=== PATIENT | female | born 1945 | race African-American/Black ===

== ENCOUNTER 2018-06-17 06:35 | Day surgery (SDC) | payer MEDICARE, MEDICAID ==
--- NOTE | 2018-06-05 11:23 | HP ---
HISTORY OF PRESENT ILLNESS: A 73-year-old, black female from [facility], assisted resident, diagnosis of Alzheimer's, has a 3.5 cm right axillary mass. Breast exam was unremarkable. Patient's daughter, Cathy Zapata, [place], [place], . Discussed with her and plan is excisi on of the right axillary mass and IV sedation, local anesthesia as an outpatient. Plan is a mode of excision in the hospital outpatient due to her dementia. Risks and benefits discussed. TOBACCO: None. ALLERGIES: None. MEDICATIONS: Tylenol p.r.n., aspirin enteric coated 81 mg a day, DuoNebs p.r.n., lactulose daily, La six 10 mg daily, MiraLax daily, potassium chloride ER daily, simvastatin 20 mg at bedtime, latanopros t eye drops 1 drop both eyes at bedtime for glaucoma, Zofran p.r.n. PAST MEDICAL HISTORY: DNR, , nonambulatory. PRIMARY CARE PHYSICIAN: Dr. Vinson. DIAGNOSIS: Alzheimer's, dementia, glaucoma, hyperlipidemia, hypertension, poor balance, fall tendenc y. RESIDENCE: [facility]. REVIEW OF SYSTEMS: Not possible. FAMILY HISTORY: Not possible. PHYSICAL EXAMINATION: VITAL SIGNS: Blood pressure 135/66, 74 heart rate, 98.4 degrees. HEAD, EARS, EYES, NOSE AND THROAT: Unremarkable. LUNGS: Clear to auscultation. CARDIAC: Regular rate and rhythm without murmur or gallop. ABDOMEN: Soft, nontender. EXTREMITIES: Unremarkable. Right axillary mass approximately 3.5 cm, smooth, mobile. BREASTS: Without palpable masses. Left axilla masses. ASSESSMENT AND PLAN: Right axillary mass and admitted the patient DNR. Plan, excision, IV sedation, local outpatient under minimal anesthesia. Risks and benefits discussed with the sister.
[2018-06-05 11:26] VITALS: BMI 34.4
[2018-06-17] MEDS ORDERED: Lidocaine 2% PF Inj 2 ML VIAL ONE ×2 (07:06→07:07)
[2018-06-17] MEDS ORDERED: Bacitracin Zinc Ointment 30 gm TUBE ONE (07:06)
[2018-06-17] MEDS ORDERED: Bupivacaine HCl 0.5%/Epinephrine 1:200,000/PF 30 ml Vial ONE (07:06)
[2018-06-17] MEDS ORDERED: CEFAZOLIN/Water 2 GM/20 ML SYRINGE ONE (07:07)
[2018-06-17] MEDS ORDERED: Fentanyl 100 MCG/2 ML VIAL ONE (07:09)
[2018-06-17 07:43] LABS: #Basophils 0.1 thou/uL (0.0-0.2); #Eosinphils 0.1 thou/uL (0.0-0.7); #Lymphocytes 2.4 thou/uL (1.20-3.40); #Monocytes 0.4 thou/uL (0.11-0.59); #Neutrophils 2.9 thou/uL (1.40-6.50); %Basophils 1.4 % (0.0-1.0); %Lymphocytes 40.8 % (21.0-51.0); %Monocytes 7.5 % (0.0-10.0); %Neutrophils 48.4 % (42.0-75.0); Mean Corpuscular HGB CONC 31.1 g/dL (32.0-36.0); Mean Corpuscular Hemoglobin 28.1 pg (27.0-31.0); Mean Corpuscular Volume 90.2 fL (78.0-98.0); Mean Platelet Volume 8.8 fL (7.4-10.4); Platelet Count 249 thou/uL (130-400); RBC Distribution Width 13.6 % (11.5-14.5); Red Blood Cell (RBC) Count 5.33 mill/uL (4.20-5.40); White Blood Cell (WBC) Count 5.9 thou/uL (4.8-10.8)
--- NOTE | 2018-06-17 08:49 | OP ---
DATE OF PROCEDURE: 06/17/2018 PREOPERATIVE DIAGNOSIS: Right axillary 4 cm cyst. POSTOPERATIVE DIAGNOSIS: Right axillary 4 cm cyst. PROCEDURE: Excision of right axillary cyst. SURGEON: Dr. Flaco Shi ANESTHESIA: TIVA, local 0.5% Marcaine with epinephrine 30 mL to his Xylocaine, 10 mL. PROCEDURE: The patient was taken to the operating room where under intravenous sedation, right axill a clipped of hair, prepared with ChloraPrep, draped in routine fashion. Local anesthetic infiltrated into skin and subcutaneous tissue. Elliptical incision made to excise ellipse of skin overlying the large cyst, dissecting the cyst from the subcutaneous tissue, obtaining hemostasis with the cautery. Subcutaneous tissues approximated with 3-0 Monocryl, skin with subdermal 4-0 Monocryl and DermaGlue applied. A 4 cm incision was used. Specimen submitted to pathology.
[2018-06-17] MEDS ORDERED: PROPOFOL 200 MG/20 ML VIAL ONE (11:04)
--- NOTE | 2018-06-21 20:24 | EKG ---
Test Reason : PREOP Blood Pressure : / mmHG Vent. Rate : 066 BPM Atrial Rate : 066 BPM P-R Int : 136 ms QRS Dur : 078 ms QT Int : 398 ms P-R-T Axes : 068 -11 060 degrees QTc Int : 417 ms Normal sinus rhythm Normal ECG When compared with ECG of 14-MAY-2013 19:14, Abberant conduction is no longer Present TN interval has increased Vent. rate has decreased BY [address] no longer depressed in Lateral leads Confirmed by Manasa SCHNEIDER ([id number]) on 06/21/2018 8:24:19 PM Referred By: ELINA Confirmed By:Manasa SCHNEIDER
--- NOTE | 2018-06-22 08:19 | PQF ---
[facility] POST DISCHARGE CLINICAL DOCUMENTATION IMPROVEMENT CLARIFICATION FORM l Todays Date: 06/22/18 l Patients Name BELINDA HOLLEY l l Admit Date 06/17/18 l Disch Date 06/17/18 Reel Winder Name Stu Reyes Email: [email or web address] Cell: [phone] Present Clinical Indicators - Signs / Symptoms Results and Location in Medical Record [ ] Documentation of: [ ] [ ] Documentation of: [ ] [ ] Documentation of: [ ] [ ] Documentation of: [ ] [ ] Risks [ ] [ ] [ ] Treatment [ ] EPIDERMAL INCLUSION CYST R AXILLA QUERY FOR SIZE OF EXCISED LESION MARGINS [ ] [ ] To be completed by Physician: DR. MARILYN ANTOINE The documentation in this patients record requires clarification to ensure coding compliance and accuracy. Check the appropriate box and include in your discharge summary. [ ] [ ] [ ] [ ] Please check this box if this does not apply to this patient [ ] Unable to determine [ ] Other diagnosis: Review the following information and exercise your independent professional judgment in responding to the clarification. Based upon the clinical findings, risk factors, and treatment, please clarify if you are treating one of the above probable or suspected diagnoses. Physician Signature: Date Time TERESAD
--- NOTE | 2018-06-29 12:00 | PQF ---
POST DISCHARGE CLINICAL DOCUMENTATION IMPROVEMENT CLARIFICATION FORM l Todays Date: 06/29/2018 l Patients Name Antonia Cabrera l l Admit Date 06/17/18 l Disch Date 06/17/18 Oracle Database Analyst Contact Name: Email: Cell: Present Clinical Indicators - Signs / Symptoms Results and Location in Medical Record [ ] Documentation of: [ ] [ ] [ ] Risks [ ] [ ] [ ] Treatment [ ] Epidermal inclusion cyst, R axilla Please specify the excised margins of the lesion. [ ] [ ] Dr. Flaco Shi The documentation in this patients record requires clarification to ensure coding compliance and accuracy. Check the appropriate box and include in your discharge summary/addendum. [ ] [ ] [ ] Please check this box if this does not apply to this patient [ ] Unable to determine [ ] Other diagnosis/procedure: Review the following information and exercise your independent professional judgment in responding to the clarification. Based upon the clinical findings, risk factors, and treatment, please clarify if you are treating one of the above probable or suspected diagnoses. Physician Signature: Date Time MTDD
== END 2018-06-17 09:50 | disposition home or self-care (01) ==
LOC: SDC 06:35
PROVIDERS: ATTEND Specialist
PROC: 0XQ4XZZ Repair Right Axilla, External Approach (ICD-10-PCS; principal; 2018-06-17)
PROC: 0JBD0ZZ Excision of Right Upper Arm Subcutaneous Tissue and Fascia, Open Approach (ICD-10-PCS; 2018-06-17)
DX: L72.0 Epidermal cyst (principal); G30.9 Alzheimer's disease, unspecified; F02.80 Dementia in other diseases classified elsewhere, unspecified severity, without behavioral disturbance, psychotic disturbance, mood disturbance, and anxiety; E78.5 Hyperlipidemia, unspecified; I10 Essential (primary) hypertension; I25.2 Old myocardial infarction; M19.90 Unspecified osteoarthritis, unspecified site; Z91.81 History of falling; Z79.82 Long term (current) use of aspirin; Z79.899 Other long term (current) drug therapy; Z66 Do not resuscitate
CPT/HCPCS: 36415; 85025; 88304; 93005; 93010; J0670; J2704; J3010

== ENCOUNTER 2019-08-23 19:27 | Inpatient (IN) | payer MEDICARE, MEDICAID ==
[2019-08-23] MEDS ORDERED: cefTRIAXone\\ROCEPHIN 2 GM VIAL ONE (19:47)
[2019-08-23 19:57] LABS: #Basophils 0.1 thou/uL (0.0-0.2); #Eosinphils 0.1 thou/uL (0.0-0.7); #Lymphocytes 3.3 thou/uL (1.20-3.40); #Monocytes 0.9 thou/uL (0.11-0.59); #Neutrophils 4.6 thou/uL (1.40-6.50); %Basophils 0.6 % (0.0-1.0); %Eosinophils 0.7 % (0.0-10.0); %Lymphocytes 36.9 % (21.0-51.0); %Neutrophils 51.8 % (42.0-75.0); Mean Corpuscular HGB CONC 31.5 g/dL (32.0-36.0); Mean Corpuscular Hemoglobin 28.3 pg (27.0-31.0); Mean Corpuscular Volume 89.8 fL (78.0-98.0); Mean Platelet Volume 7.7 fL (7.4-10.4); Platelet Count 187 thou/uL (130-400); RBC Distribution Width 13.5 % (11.5-14.5); Red Blood Cell (RBC) Count 4.94 mill/uL (4.20-5.40); White Blood Cell (WBC) Count 8.8 thou/uL (4.8-10.8)
--- NOTE | 2019-08-23 19:57 | RAD ---
Portable frontal chest radiograph: 08/23/2019 COMPARISON: 12/07/2015 HISTORY: Cough FINDINGS: Shallow inspiration limits detailed assessment. Mild linear density in the medial left base suggest volume loss. No pneumothorax or pleural fluid. No focal consolidation or alveolar edema. IMPRESSION: Shallow inspiration with no focal consolidation or alveolar edema.
[2019-08-23 20:20] LABS: ALT (SGPT) 20 U/L (8-55); AST (SGOT) 22 U/L (5-34); Albumin 3.3 g/dL (3.4-4.8); Alkaline Phosphatase 87 U/L (40-110); Anion Gap 11 mmol/L (10-20); BUN (Urea Nitrogen) 11 mg/dL (9.8-20.1); Bilirubin, Total 0.6 mg/dL (0.2-1.2); Calc. Creatinine Clearance 0 mL/min (70-130); Calcium 9.4 mg/dL (7.8-10.44); Carbon Dioxide 30 mmol/L (23-31); Chloride 101 mmol/L (98-107); Estimated GFR-MDRD Greater than 90; Globulin 3.4 g/dL (2.4-3.5); Glucose 101 mg/dL (83-110); Potassium 4.1 mmol/L (3.5-5.1); Protein, Total 6.7 g/dL (6.0-8.3); Sodium 138 mmol/L (136-145)
[2019-08-23 20:43] LABS: Bacteria/HPF 4+ HPF (None Seen); Bilirubin Negative (Negative); Blood, Urine Trace (Negative); Clarity Turbid (Clear); Glucose, Urine (Dipstick) Normal (Negative); Leukocyte 500 Leu/uL (Negative); Nitrite Negative (Negative); Protein, Urine (Dipstick) Negative (Neg-Trace); Squamous Epithelial 0-3 HPF (0-3); WBC/HPF Greater than 50 HPF (0-3)
[2019-08-23 20:55] LABS: Transitional Epithelial 0-3 HPF (None Seen)
[2019-08-23] MEDS ORDERED: Ondansetron ODT 4 MG TAB PO PRN ×2 (22:20→22:24)
--- NOTE | 2019-08-23 22:38 | PDOC.HHP ---
Hospitalist HPI - History of Present Illness SOB History of Present Illness: 74 YO F [facility] resident, with a PMH of HTN, tob abuse, bedbound state who was brought into the ER on account of SOB. Pt is unable to provide any hx. Hx is therefore obtained from speaking with ER Dr and pt's sister. Pt's SOB started today and got worse, so the [facility] sent her to the ER. There is no hx of fever, chills, CP or cough. Pts sister says that although pt does not have a hx of CHF, She has been retaining a lot of fluid recently and has gained a lot of weight. Upon presentation to the Er, pt was noted to have hypoxia and was placed on a BIPAP. CXR was not very revealing and UA noted a UTI. Pt was given abx and steroids and has been admitted for further w/u. Hospitalist ROS - Review of Systems Constitutional: denies: fever, chills, sweats, weakness, malaise, other Eyes: denies: pain, vision change, conjunctivae inflammation, eyelid inflammation, redness, other ENT: denies: ear pain, ear discharge, nose pain, nose discharge, nose congestion , mouth pain, mouth swelling, throat pain, throat swelling, other Respiratory: reports: SOB with excertion. denies: cough, dry, shortness of breath, hemoptysis, pleuritic pain, sputum, wheezing, other Cardiovascular: denies: chest pain, palpitations, orthopnea, paroxysmal noc. dyspnea, edema, light headedness, other Gastrointestinal: denies: nausea, vomiting, abdominal pain, diarrhea, constipation, melena, hematochezia, other Genitourinary: denies: dysuria, frequency, incontinence, hematuria, retention, other Musculoskeletal: denies: neck pain, shoulder pain, arm pain, back pain, hand pain, leg pain, foot pain, other Skin: denies: rash, lesions, demond, bruising, other Neurological: denies: weakness, numbness, incoordination, change in speech, confusion, seizures, other Hospitalist History - Past Medical History Cardiac: reports: HTN Other Medical History: Bed bound state - Family History Family History: reports: cancer, diabetes mellitus, hypertension - Social History Smoking Status: Former smoker Alcohol: reports: None Drugs: reports: none Living Situation: Senior Living Activity level: wheelchair bound - Exam General Appearance: ill appearing General - other findings: BIPAP on face Eye: PERRL, anicteric sclera ENT: normocephalic atraumatic, no oropharyngeal lesions, moist mucosa Neck: supple, symmetric, no JVD, no thyromegaly, no lymphadenopathy, no carotid bruit Heart: RRR, no murmur, no gallops, no rubs, normal peripheral pulses Respiratory: rales, rhonchi, tachypneic. negative: CTAB, no wheezes, no rales, no ronchi, normal chest expansion, no tachypnea, normal percussion, wheezes Gastrointestinal: soft, non-tender, non-distended, normal bowel sounds, no palpable masses, no hepatomegaly, no splenomegaly, no bruit Extremities: 1+ LE edema. negative: no cyanosis, no clubbing, no edema, 2+ LE edema, clubbing Neurological: cranial nerve grossly intact Neurological - other findings: decreased strength in both upper and lower ext Musculoskeletal: generalized weakness, diffuse muscle atrophy Psychiatric: normal affect, normal behavior, A&O x 3 Hospitalist Results - Labs Result Diagrams: 08/23/19 19:47 08/23/19 19:47 Lab results: WBC 8.8 thou/uL (4.8-10.8) 08/23/19 19:47 Hgb 14.0 g/dL (12.0-16.0) 08/23/19 19:47 Hct 44.4 % (36.0-47.0) 08/23/19 19:47 MCV 89.8 fL (78.0-98.0) 08/23/19 19:47 Plt Count 187 thou/uL (130-400) 08/23/19 19:47 Neutrophils % 51.8 % (42.0-75.0) 08/23/19 19:47 Sodium 138 mmol/L (136-145) 08/23/19 19:47 Potassium 4.1 mmol/L (3.5-5.1) 08/23/19 19:47 Chloride 101 mmol/L (98-107) 08/23/19 19:47 Carbon Dioxide 30 mmol/L (23-31) 08/23/19 19:47 BUN 11 mg/dL (9.8-20.1) 08/23/19 19:47 Creatinine 0.55 mg/dL (0.6-1.1) L 08/23/19 19:47 Glucose 101 mg/dL (83-110) 08/23/19 19:47 Lactic Acid 1.2 mmol/L (0.5-2.2) 08/23/19 19:47 Calcium 9.4 mg/dL (7.8-10.44) 08/23/19 19:47 Total Bilirubin 0.6 mg/dL (0.2-1.2) 08/23/19 19:47 AST 22 U/L (5-34) 08/23/19 19:47 ALT 20 U/L (8-55) 08/23/19 19:47 Alkaline Phosphatase 87 U/L (40-110) 08/23/19 19:47 Troponin I 0.018 ng/mL (< 0.028) 08/23/19 19:55 B-Natriuretic Peptide 77.3 pg/mL (0-100) 08/23/19 19:47 Serum Total Protein 6.7 g/dL (6.0-8.3) 08/23/19 19:47 Albumin 3.3 g/dL (3.4-4.8) L 08/23/19 19:47 Urine Ketones Negative mg/dL (Negative) 08/23/19 20:13 Urine Blood Trace (Negative) A 08/23/19 20:13 Urine Nitrite Negative (Negative) 08/23/19 20:13 Ur Leukocyte Esterase 500 Erlinda/uL (Negative) A 08/23/19 20:13 Urine RBC 7-10 HPF (0-3) A 08/23/19 20:13 Urine WBC Greater than 50 HPF (0-3) A 08/23/19 20:13 Ur Squamous Epith Cells 0-3 HPF (0-3) 08/23/19 20:13 Urine Bacteria 4+ HPF (None Seen) A 08/23/19 20:13 Hospitalist H&P A/P - Problem (1) Respiratory failure Code(s): J96.90 - RESPIRATORY FAILURE, UNSP, UNSP W HYPOXIA OR HYPERCAPNIA Status: Acute Qualifiers: Chronicity: acute Respiratory failure complication: hypoxia Qualified Code(s): J96.01 - Acute respiratory failure with hypoxia Assessment and Plan: Etiology is unclear. Will get BNP, Echo and CT chest to eval for Pulm edema vs PNA. Cont on BIPAP for tonight. Will get blood gas in the morning. Cont steroids , lasix, nebs and abx. Monitor for symp improvement. (2) UTI (urinary tract infection) Status: Acute Qualifiers: Urinary tract infection type: acute cystitis Hematuria presence: without hematuria Qualified Code(s): N30.00 - Acute cystitis without hematuria Assessment and Plan: Cont current abx. F/u with urine cx results (3) Benign essential hypertension Code(s): I10 - ESSENTIAL (PRIMARY) HYPERTENSION Status: Chronic Assessment and Plan: Stable. Cont current meds (4) Bedbound Code(s): Z74.01 - BED CONFINEMENT STATUS Status: Acute Assessment and Plan: Cont suportive care. (5) Hyperlipidemia Code(s): E78.5 - HYPERLIPIDEMIA, UNSPECIFIED Status: Chronic Assessment and Plan: Cont statins. - Plan Plan: PPx: Lovenox. CODE status: Full. Dispo: Admit to IMU as inpatient.
[2019-08-23] MEDS ORDERED: methylPREDNISolone Sod Succ 40 MG VIAL IVP SCH (22:45)
[2019-08-23] MEDS ORDERED: Furosemide 40 MG/4 ML VIAL SLOW IVP SCH (23:00)
[2019-08-23 23:07] LABS: Troponin I 0.023 ng/mL (< 0.028)
[2019-08-24] MEDS ORDERED: Furosemide 40 MG/4 ML VIAL ONE (00:06)
[2019-08-24] MEDS ORDERED: methylPREDNISolone Sod Succ 40 MG VIAL ONE (00:06)
[2019-08-24 07:56] LABS: #Lymphocytes 1.1 thou/uL (1.20-3.40); #Monocytes 0.1 thou/uL (0.11-0.59); %Basophils 0.7 % (0.0-1.0); %Eosinophils 0.1 % (0.0-10.0); %Lymphocytes 17.9 % (21.0-51.0); %Monocytes 1.2 % (0.0-10.0); Hemoglobin 16.2 g/dL (12.0-16.0); Mean Corpuscular HGB CONC 30.7 g/dL (32.0-36.0); Mean Corpuscular Hemoglobin 28.1 pg (27.0-31.0); Mean Corpuscular Volume 91.5 fL (78.0-98.0); Platelet Count 194 thou/uL (130-400); RBC Distribution Width 13.8 % (11.5-14.5); Red Blood Cell (RBC) Count 5.77 mill/uL (4.20-5.40); White Blood Cell (WBC) Count 6.2 thou/uL (4.8-10.8)
[2019-08-24] MEDS ORDERED: Potassium Chloride 20 MEQ TAB PO SCH (08:00)
--- NOTE | 2019-08-24 08:36 | CT ---
PRELIMINARY REPORT/[facility]/EMERGENCY AFTER HOURS PROCEDURE: EXAM: CT Chest Without Intravenous Contrast. CLINICAL HISTORY: ER 8... , 74 YO F presents to ED from care center w/ productive cough x 1 day. Pt states she's having trouble breathing all the time. TECHNIQUE: Axial computed tomography images of the chest without intravenous contrast. COMPARISON: None provided. FINDINGS: LUNGS: Mild edema with bibasilar subsegmental atelectasis. PLEURAL SPACES: No pleural effusion. No pneumothorax. HEART AND MEDIASTINUM: No cardiomegaly. No significant pericardial effusion. LYMPH NODES: No lymphadenopathy. CHEST WALL AND UPPER ABDOMEN: The upper abdominal solid organs are unremarkable. The chest wall is un remarkable. BONES: No acute osseous abnormality. IMPRESSION: 1. Mild edema. 2. Bibasilar subsegmental atelectasis ELECTRONICALLY SIGNED BY: Adams Vasquez M.D. Aug 24, 2019 6:04:29 AM PARKING ASSISTANT This report is intended for review by the ordering physician only, in accordance of law. If you recei ve this report in error, please call [facility] at [phone]. FINAL REPORT CHEST CT WITHOUT CONTRAST: Date: 08/23/19 HISTORY: Evaluate for pulmonary edema versus pneumonia. COMPARISON: None. FINDINGS: Limited evaluation of the mediastinum due to lack of IV contrast. Mild heterogeneity of the thyroid gland, incompletely evaluated. No evidence of axillary lymphadenopa thy. Limited evaluation of the mediastinum due to lack of IV contrast. No mass, lymphadenopathy, or hemato ma. Nonspecific precarinal lymph node measuring 1.4 x 0.8 cm. Heart is enlarged. No significant peric ardial fluid. Minimal coronary artery calcifications. Minimal atherosclerosis of a nonaneurysmal aort a. Upper abdomen is grossly unremarkable. Trachea and central bronchi are patent. Minimal emphysematous changes involving both upper lobes. Dependent atelectatic changes adjacent to small pleural effusions. Patchy linear opacities in both lo wer lobes may represent areas of scar or subsegmental atelectasis. The possibility of a left and/or r ight lower lobe infiltrate cannot be entirely excluded. No lytic or blastic lesions in the osseous st ructures. IMPRESSION: Bibasilar opacities which may in part represent atelectasis given the presence of adjacent pleural ef fusion. Infiltrate due to pneumonia/aspiration cannot be excluded. Continued surveillance is recommen ded. POS: OFF
[2019-08-24 11:06] LABS: Chloride 103 mmol/L (98-107); Sodium 140 mmol/L (136-145)
[2019-08-24 11:07] LABS: Calcium 9.7 mg/dL (7.8-10.44)
[2019-08-24 11:18] LABS: Anion Gap 17 mmol/L (10-20); BUN (Urea Nitrogen) 10 mg/dL (9.8-20.1); Calc. Creatinine Clearance 0 mL/min (70-130); Carbon Dioxide 25 mmol/L (23-31); Estimated GFR-MDRD Greater than 90; Glucose 143 mg/dL (83-110)
[2019-08-24] MEDS ORDERED: Potassium Chloride 20 MEQ TAB ONE (11:27)
[2019-08-24] MEDS ORDERED: Enoxaparin Sodium 40 MG/0.4 ML SYRINGE ONE (11:27)
[2019-08-24] MEDS ORDERED: Multivitamin W/ Minerals 1 TAB ONE (11:27)
[2019-08-24] MEDS ORDERED: Aspirin Chewable 81 MG TAB ONE (11:27)
[2019-08-24] MEDS: Aspirin 81 mg Enteric Coated Tablet PO SCH (11:38)
[2019-08-24] MEDS: Multivit, Therapeutic 1 TAB PO SCH (11:39)
[2019-08-24] MEDS: Enoxaparin Sodium 40 MG/0.4 ML SYRINGE SC SCH (11:41)
[2019-08-24] MEDS ORDERED: Dextrose 50% Abboject 50 ML SYRINGE SLOW IVP SCH (14:00)
[2019-08-24] MEDS ORDERED: Insulin Regular 300 UNITS/3 ML VIAL IVP SCH (14:00)
[2019-08-24] MEDS ORDERED: Albuterol Sulfate 1.25 MG/3 ML NEB NEB SCH (14:00)
--- NOTE | 2019-08-24 15:30 | PDOC.HOSPP ---
- Subjective Encounter Date: 08/24/19 Encounter Time: 10:00 Subjective: Pt seen for followup re; acute on chronic hypoxic respiratory failure. States she feels better. Denies fevers. Cough+, minimal sputum. - Objective Vital Signs & Weight: Vital Signs (12 hours) Pulse Ox 08/24/19 09:09 93 L Result Diagrams: 08/24/19 07:28 08/24/19 10:45 Additional Labs: Labs and MARs reviewed by me. EKG Reviewed by me: Yes (Tele: NSR) Hospitalist ROS - Review of Systems Respiratory: reports: cough, dry. denies: shortness of breath, hemoptysis, SOB with excertion, pleuritic pain, sputum, wheezing Cardiovascular: denies: chest pain, palpitations, orthopnea, paroxysmal noc. dyspnea, edema, light headedness Gastrointestinal: denies: nausea, vomiting, abdominal pain, diarrhea, constipation, melena, hematochezia - Medication Medications: Active Medications Generic Name Dose Route Start Last Admin Trade Name Freq PRN Reason Stop Dose Admin Aspirin 81 mg 08/24/19 09:00 08/24/19 11:38 Ecotrin PO 81 mg DAILY TAISHA Administration Enoxaparin Sodium 40 mg 08/24/19 09:00 08/24/19 11:41 Lovenox SC 40 mg 0900 TAISHA Administration Multivitamins 1 tab 08/24/19 09:00 08/24/19 11:39 Theragran PO 1 tab DAILY TAISHA Administration - Exam General Appearance: NAD, awake alert Eye: anicteric sclera ENT: moist mucosa Neck: supple, symmetric Heart: RRR, no rubs Respiratory - other findings: Bibasal crackles Gastrointestinal: soft, non-tender Extremities: 1+ LE edema Psychiatric: normal affect, normal behavior Hosp A/P (1) Acute on chronic respiratory failure with hypoxia Code(s): J96.21 - ACUTE AND CHRONIC RESPIRATORY FAILURE WITH HYPOXIA Status: Acute (2) UTI (urinary tract infection) Status: Acute Qualifiers: Urinary tract infection type: acute cystitis Hematuria presence: without hematuria Qualified Code(s): N30.00 - Acute cystitis without hematuria (3) Hyperkalemia Code(s): E87.5 - HYPERKALEMIA Status: Acute (4) Benign essential hypertension Code(s): I10 - ESSENTIAL (PRIMARY) HYPERTENSION Status: Chronic (5) Hyperlipidemia Code(s): E78.5 - HYPERLIPIDEMIA, UNSPECIFIED Status: Chronic - Plan continue antibiotics, out of bed/ambulate Unclear as to the etiology of hypoxia, shortness of breath and cough. No evidence of pneumonia, BNP normal. 2D echo pending. Hyperkalemia - administer Humulin-R followed by D50, beta agonist nebs and kayexalate. Recheck potassium level. HTN controlled. Continue Zocor.
[2019-08-24] MEDS ORDERED: Dextrose 50 % In Water 50 ML SYRINGE ONE (16:05)
[2019-08-24] MEDS: methylPREDNISolone Sod Succ 40 MG VIAL IVP SCH ×3 (16:32→22:48)
[2019-08-24] MEDS: Furosemide 40 MG/4 ML VIAL SLOW IVP SCH ×2 (16:32→22:45)
[2019-08-24 18:30] LABS: Potassium 4.4 mmol/L (3.5-5.1)
[2019-08-24] MEDS ORDERED: cefTRIAXone\\ROCEPHIN 1 GM in Sodium Chloride 0.9% 100 ML IVPB SCH (20:00)
[2019-08-24] MEDS ORDERED: Bacteriostatic Water 30 ML VIAL FS PRN (21:14)
[2019-08-24] MEDS: Latanoprost 0.005% Ophth Soln 2.5 ml Bottle EA EYE SCH (21:34)
[2019-08-24] MEDS: Simvastatin 20 MG TAB PO SCH (21:35)
[2019-08-24] MEDS: Polyethylene Glycol 3350 17 GM Packet PO SCH (22:45)
--- NOTE | 2019-08-25 02:12 | CON ---
DATE OF CONSULTATION: 08/24/2019 HISTORY OF PRESENT ILLNESS: Ms. Cabrera is a 74-year-old female who is actually a poor historian because it appears that she is hard of hearing. She apparently lives in a full-time care environment. She presented with complaints of shortness of breath. She does tell me when I asked her directly if she had a history of asthma that she does have asthma. She says she has never smoked. It is very difficult to get a history out of her, but she is pleasant, tries to cooperate. PAST MEDICAL HISTORY: There are no medical records here that clearly define her past medical history. There is a note from yesterday by the ER physician, but it does not really explain why she lives in a halfway. She is bed-bound and has a history of hypertension. FAMILY HISTORY: Reported as cancer, diabetes, and hypertension. SOCIAL HISTORY: Remarkable for drugs, alcohol, and tobacco is none. REVIEW OF SYSTEMS: 10 point review of systems completed, not accurately obtainable. PHYSICAL EXAMINATION: GENERAL: A very pleasant, cooperative woman, but she is extremely hard of hearing. Does not make eye contact when she is answering questions. VITAL SIGNS: She is afebrile. Heart rate is 113, respiratory rate is 18, oximetry is 93. She has a slightly dysconjugate gaze. NECK: Supple. No lymphadenopathy. Sclerae anicteric. LUNGS: Remarkable for a long expiratory phase and diffuse wheezes. HEART: Regular rhythm. S1 and S2 are normal. ABDOMEN: Soft and nontender. EXTREMITIES: Without clubbing, cyanosis, or edema. NEUROLOGICAL: Nonfocal. LABORATORY DATA: White count 6.2, hemoglobin 16.2, hemoglobin was 14 yesterday, platelets 194,000. Sodium 140, potassium 6, potassium later today was 4.4, chloride 103, bicarb 25, BUN 10, creatinine 0.56. D-dimer is 5. CT pulmonary angiogram just showed atelectasis at both bases. IMPRESSION AND PLAN: Asthma exacerbation based on the history she gave me. No old records documenting that she has asthma. At this point in time, it does not appear that there are any nebulizer treatments ordered and she is clearly wheezing. Steroids would be reasonable. Rocephin is ordered, but there are no alveolar infiltrates suggesting that she has a pneumonia. Lasix is ordered, but there is nothing that suggests she has significant pulmonary edema. Given that she is a poor historian, I would simply treat her with lower dose steroids and then routine nebulized treatments. I would see how she looks in the morning. We will see her as needed in the future. This is a 50 minute consult with greater than 50% of time spent on unit coordinating care. Job ID: [id number] MTDD
[2019-08-25 03:45] VITALS: BMI 34.0
[2019-08-25] MEDS: Furosemide 40 MG/4 ML VIAL SLOW IVP SCH ×2 (05:22→14:42)
[2019-08-25] MEDS: methylPREDNISolone Sod Succ 40 MG VIAL IVP SCH ×3 (05:23→21:17)
[2019-08-25] MEDS: Aspirin 81 mg Enteric Coated Tablet PO SCH (08:35)
[2019-08-25] MEDS: Multivit, Therapeutic 1 TAB PO SCH (08:35)
[2019-08-25] MEDS: Enoxaparin Sodium 40 MG/0.4 ML SYRINGE SC SCH (08:35)
[2019-08-25] MEDS: Polyethylene Glycol 3350 17 GM Packet PO SCH (08:36)
[2019-08-25] MEDS ORDERED: Nitrofurantoin Monohyd/M-Cryst 100 MG CAP PO SCH (10:00)
[2019-08-25 13:59] LABS: #Lymphocytes 1.2 thou/uL (1.20-3.40); #Monocytes 1.2 thou/uL (0.11-0.59); #Neutrophils 6.6 thou/uL (1.40-6.50); %Basophils 0.5 % (0.0-1.0); %Eosinophils 0.5 % (0.0-10.0); %Lymphocytes 12.8 % (21.0-51.0); %Monocytes 13.5 % (0.0-10.0); %Neutrophils 72.7 % (42.0-75.0); Hemoglobin 15.2 g/dL (12.0-16.0); Mean Corpuscular HGB CONC 31.2 g/dL (32.0-36.0); Mean Corpuscular Hemoglobin 28.3 pg (27.0-31.0); Mean Corpuscular Volume 90.7 fL (78.0-98.0); Mean Platelet Volume 7.7 fL (7.4-10.4); Platelet Count 229 thou/uL (130-400); RBC Distribution Width 13.6 % (11.5-14.5); Red Blood Cell (RBC) Count 5.38 mill/uL (4.20-5.40)
[2019-08-25 14:21] LABS: Anion Gap 13 mmol/L (10-20); BUN (Urea Nitrogen) 15 mg/dL (9.8-20.1); Calc. Creatinine Clearance 129 mL/min (70-130); Carbon Dioxide 34 mmol/L (23-31); Chloride 98 mmol/L (98-107); Estimated GFR-MDRD Greater than 90; Glucose 114 mg/dL (83-110); Potassium 3.7 mmol/L (3.5-5.1); Sodium 141 mmol/L (136-145)
[2019-08-25] MEDS: Acetaminophen 325 MG TAB PO PRN ×2 (15:52→21:16)
[2019-08-25] MEDS ORDERED: Haloperidol Lactate 5 MG/ML VIAL IM PRN (16:26)
--- NOTE | 2019-08-25 16:49 | PDOC.HOSPP ---
- Subjective Encounter Date: 08/25/19 Encounter Time: 07:00 Subjective: Pt seen for followup re: UTI. Feels better. - Objective Vital Signs & Weight: Vital Signs (12 hours) Temp Pulse Resp BP Pulse Ox 08/25/19 16:00 98.4 F 18 L 17 141/76 H 97 08/25/19 14:15 98.2 F 66 18 98/62 97 08/25/19 14:00 93 16 97 08/25/19 12:00 97.3 F L 67 18 97 08/25/19 10:35 89 18 96 08/25/19 07:04 113 H 18 96 08/25/19 07:00 98.1 F 69 18 115/55 L 97 Weight Weight 217 lb 11.2 oz I&O: 08/24/19 08/25/19 08/26/19 06:59 06:59 06:59 Intake Total 150 480 Output Total 950 500 Balance -800 -20 Result Diagrams: 08/25/19 13:50 08/25/19 13:50 Additional Labs: Labs and MARs reviewed by [place] Hospitalist ROS - Review of Systems Cardiovascular: denies: chest pain, palpitations, orthopnea, paroxysmal noc. dyspnea, edema, light headedness Genitourinary: denies: dysuria, frequency, incontinence, hematuria, retention - Medication Medications: Active Medications Generic Name Dose Route Start Last Admin Trade Name Freq PRN Reason Stop Dose Admin Acetaminophen 650 mg 08/23/19 22:21 08/25/19 15:52 Tylenol PO 650 mg Q4H PRN Administration Headache/Fever/Mild Pain (1-3) Albuterol/Ipratropium 3 ml 08/25/19 07:00 08/25/19 14:00 Duoneb NEB 3 ml [id number] TAISHA Administration Aspirin 81 mg 08/24/19 09:00 08/25/19 08:35 Ecotrin PO 81 mg DAILY TAISHA Administration Enoxaparin Sodium 40 mg 08/24/19 09:00 08/25/19 08:35 Lovenox SC 40 mg 0900 TAISHA Administration Furosemide 40 mg 08/24/19 06:00 08/25/19 14:42 Lasix SLOW IVP 40 mg 0600,1400 TAISHA Administration Lactulose 40 gm 08/24/19 21:00 08/24/19 21:29 Lactulose PO 40 gm HS TAISHA Administration Latanoprost 1 drop 08/24/19 21:00 08/24/19 21:34 Xalatan 0.005% Ophth Soln EA EYE 1 drop HS TAISHA Administration Methylprednisolone Sodium Succinate 20 mg 08/24/19 21:06 08/25/19 14:43 Solu-Medrol IVP 20 mg Q8HR TAISHA Administration Multivitamins 1 tab 08/24/19 09:00 08/25/19 08:35 Theragran PO 1 tab DAILY TAISHA Administration Polyethylene Glycol 17 gm 08/24/19 09:00 08/25/19 08:36 Miralax PO 17 gm DAILY TAISHA Administration Simvastatin 20 mg 08/24/19 21:00 08/24/19 21:35 Zocor PO 20 mg HS TAISHA Administration - Exam General Appearance: NAD, awake alert Eye: anicteric sclera ENT: no oropharyngeal lesions, moist mucosa Heart: RRR, no rubs Respiratory: CTAB Gastrointestinal: soft, non-tender Psychiatric: normal affect, normal behavior Hosp A/P (1) UTI (urinary tract infection) Status: Acute Qualifiers: Urinary tract infection type: acute cystitis Hematuria presence: without hematuria Qualified Code(s): N30.00 - Acute cystitis without hematuria (2) Acute on chronic respiratory failure with hypoxia Code(s): J96.21 - ACUTE AND CHRONIC RESPIRATORY FAILURE WITH HYPOXIA Status: Acute (3) Benign essential hypertension Code(s): I10 - ESSENTIAL (PRIMARY) HYPERTENSION Status: Chronic (4) Hyperlipidemia Code(s): E78.5 - HYPERLIPIDEMIA, UNSPECIFIED Status: Chronic (5) Hyperkalemia Code(s): E87.5 - HYPERKALEMIA Status: Resolved - Plan continue antibiotics, out of bed/ambulate Continuie steroids and bronchodilators. Switch antibiotic to nitrofurantoin (E. coli is susceptible). HTN controlled. Continue Zocor. Back to NH in 24 h.
[2019-08-25] MEDS: Simvastatin 20 MG TAB PO SCH (21:16)
[2019-08-25] MEDS: Nitrofurantoin Monohyd/M-Cryst 100 MG CAP PO SCH (21:16)
[2019-08-25] MEDS: Latanoprost 0.005% Ophth Soln 2.5 ml Bottle EA EYE SCH (21:19)
[2019-08-26] MEDS: Furosemide 40 MG/4 ML VIAL SLOW IVP SCH ×2 (05:37→13:54)
[2019-08-26] MEDS: methylPREDNISolone Sod Succ 40 MG VIAL IVP SCH ×2 (05:37→13:54)
[2019-08-26 06:47] LABS: #Lymphocytes 1.4 thou/uL (1.20-3.40); #Monocytes 0.6 thou/uL (0.11-0.59); #Neutrophils 5.1 thou/uL (1.40-6.50); %Basophils 0.1 % (0.0-1.0); %Eosinophils 0.2 % (0.0-10.0); %Lymphocytes 19.3 % (21.0-51.0); %Monocytes 7.9 % (0.0-10.0); %Neutrophils 72.6 % (42.0-75.0); Hemoglobin 13.6 g/dL (12.0-16.0); Mean Corpuscular HGB CONC 31.1 g/dL (32.0-36.0); Mean Corpuscular Hemoglobin 28.2 pg (27.0-31.0); Mean Corpuscular Volume 90.6 fL (78.0-98.0); Mean Platelet Volume 7.5 fL (7.4-10.4); Platelet Count 198 thou/uL (130-400); RBC Distribution Width 13.5 % (11.5-14.5); Red Blood Cell (RBC) Count 4.84 mill/uL (4.20-5.40); White Blood Cell (WBC) Count 7.1 thou/uL (4.8-10.8)
[2019-08-26 07:19] LABS: Anion Gap 11 mmol/L (10-20); BUN (Urea Nitrogen) 15 mg/dL (9.8-20.1); Calc. Creatinine Clearance 149 mL/min (70-130); Calcium 9.3 mg/dL (7.8-10.44); Carbon Dioxide 37 mmol/L (23-31); Chloride 98 mmol/L (98-107); Estimated GFR-MDRD Greater than 90; Glucose 133 mg/dL (83-110); Potassium 3.5 mmol/L (3.5-5.1); Sodium 142 mmol/L (136-145)
[2019-08-26] MEDS: Enoxaparin Sodium 40 MG/0.4 ML SYRINGE SC SCH (08:13)
[2019-08-26] MEDS: Polyethylene Glycol 3350 17 GM Packet PO SCH (08:13)
[2019-08-26] MEDS: Multivit, Therapeutic 1 TAB PO SCH (08:14)
[2019-08-26] MEDS: Nitrofurantoin Monohyd/M-Cryst 100 MG CAP PO SCH ×2 (08:14→20:42)
[2019-08-26] MEDS: Aspirin 81 mg Enteric Coated Tablet PO SCH (08:14)
--- NOTE | 2019-08-26 15:58 | PDOC.HOSPP ---
- Subjective Encounter Date: 08/26/19 Encounter Time: 08:40 Subjective: Pt seen for followup re: UTI. No complaints. - Objective Vital Signs & Weight: Vital Signs (12 hours) Temp Pulse Resp BP Pulse Ox 08/26/19 13:45 86 14 97 08/26/19 10:27 85 12 98 08/26/19 10:26 97 08/26/19 07:08 91 14 96 08/26/19 07:00 98.3 F 66 18 113/79 97 08/26/19 04:50 98.1 F 66 18 107/68 97 Weight Weight 226 lb I&O: 08/25/19 08/26/19 08/27/19 06:59 06:59 06:59 Intake Total 150 1170 540 Output Total 950 700 Balance -800 470 540 Result Diagrams: 08/26/19 06:18 08/26/19 06:18 Additional Labs: Labs and MARs reviewed by sc Hospitalist ROS - Review of Systems Cardiovascular: denies: chest pain, palpitations, orthopnea, paroxysmal noc. dyspnea, edema, light headedness Gastrointestinal: denies: nausea, vomiting, abdominal pain, diarrhea, constipation, melena, hematochezia - Medication Medications: Active Medications Generic Name Dose Route Start Last Admin Trade Name Freq PRN Reason Stop Dose Admin Acetaminophen 650 mg 08/23/19 22:21 08/25/19 21:16 Tylenol PO 650 mg Q4H PRN Administration Headache/Fever/Mild Pain (1-3) Albuterol/Ipratropium 3 ml 08/25/19 07:00 08/26/19 13:45 Duoneb NEB 3 ml [id number] TAISHA Administration Aspirin 81 mg 08/24/19 09:00 08/26/19 08:14 Ecotrin PO 81 mg DAILY TAISHA Administration Enoxaparin Sodium 40 mg 08/24/19 09:00 08/26/19 08:13 Lovenox SC 40 mg 0900 TAISHA Administration Lactulose 40 gm 08/24/19 21:00 08/25/19 21:17 Lactulose PO 40 gm HS TAISHA Administration Latanoprost 1 drop 08/24/19 21:00 08/25/19 21:19 Xalatan 0.005% Ophth Soln EA EYE 1 drop HS TAISHA Administration Methylprednisolone Sodium Succinate 20 mg 08/24/19 21:06 08/26/19 13:54 Solu-Medrol IVP 20 mg Q8HR TAISHA Administration Multivitamins 1 tab 08/24/19 09:00 08/26/19 08:14 Theragran PO 1 tab DAILY TAISHA Administration Nitrofurantoin Macrocrystals 100 mg 08/25/19 21:00 08/26/19 08:14 Macrobid PO 100 mg BID TAISHA Administration Polyethylene Glycol 17 gm 08/24/19 09:00 08/26/19 08:13 Miralax PO 17 gm DAILY TAISHA Administration Simvastatin 20 mg 08/24/19 21:00 08/25/19 21:16 Zocor PO 20 mg HS TAISHA Administration - Exam General Appearance: NAD Eye: anicteric sclera ENT: moist mucosa Neck: supple Heart: RRR Respiratory: CTAB Gastrointestinal: soft, non-tender, normal bowel sounds Skin: no rashes Psychiatric: normal affect, normal behavior Hosp A/P (1) UTI (urinary tract infection) Status: Acute Qualifiers: Urinary tract infection type: acute cystitis Hematuria presence: without hematuria Qualified Code(s): N30.00 - Acute cystitis without hematuria (2) Acute on chronic respiratory failure with hypoxia Code(s): J96.21 - ACUTE AND CHRONIC RESPIRATORY FAILURE WITH HYPOXIA Status: Acute (3) Asthma exacerbation Code(s): J45.901 - UNSPECIFIED ASTHMA WITH (ACUTE) EXACERBATION Status: Acute Plan: present on admission (4) Benign essential hypertension Code(s): I10 - ESSENTIAL (PRIMARY) HYPERTENSION Status: Chronic (5) Hyperlipidemia Code(s): E78.5 - HYPERLIPIDEMIA, UNSPECIFIED Status: Chronic (6) Hyperkalemia Code(s): E87.5 - HYPERKALEMIA Status: Resolved - Plan continue antibiotics, out of bed/ambulate Continuie bronchodilators. Switch to oral steroids. Continue nitrofurantoin (E. coli is susceptible). HTN controlled. Continue Zocor. 2D echo report pending.
[2019-08-26] MEDS: Simvastatin 20 MG TAB PO SCH (20:42)
[2019-08-26] MEDS: Latanoprost 0.005% Ophth Soln 2.5 ml Bottle EA EYE SCH (20:42)
[2019-08-26] MEDS: Acetaminophen 325 MG TAB PO PRN (20:43)
[2019-08-27] MEDS ORDERED: predniSONE 20 MG TAB PO SCH (08:00)
[2019-08-27] MEDS: Nitrofurantoin Monohyd/M-Cryst 100 MG CAP PO SCH (08:22)
[2019-08-27] MEDS: Polyethylene Glycol 3350 17 GM Packet PO SCH (08:22)
[2019-08-27] MEDS: Enoxaparin Sodium 40 MG/0.4 ML SYRINGE SC SCH (08:22)
[2019-08-27] MEDS: Aspirin 81 mg Enteric Coated Tablet PO SCH (08:22)
[2019-08-27] MEDS: Multivit, Therapeutic 1 TAB PO SCH (08:22)
[2019-08-27 17:02] VITALS: BP 128/74; TEMP 99.1
--- NOTE | 2019-08-27 21:06 | DIS ---
DATE OF ADMISSION: 08/23/2019 DATE OF DISCHARGE: 08/27/2019 PRIMARY CARE PROVIDER: Ashlie Vinson MD. DISCHARGE DIAGNOSES: 1. Urinary tract infection. 2. Acute on chronic respiratory failure with hypoxia. 3. Asthma exacerbation. CONDITION OF PATIENT ON THE DAY OF DISCHARGE: Stable. I assessed Ms. Cabrera on the day of discharge. She denies any chest pain or shortness of breath. Vital signs are stable. S1 and S2 are heard, regular. Lungs are clear to auscultation bilaterally. DISCHARGE MEDICATIONS: 1. Acetaminophen 500 to 1000 mg every 4 hours as needed. 2. Nitroglycerin 0.4 mg sublingually every 5 minutes as needed. 3. Aspirin 81 mg daily. 4. Prolensa one drop to right eye daily. 5. Refresh Tears two drops to each eye two times a day. 6. Lasix 20 mg daily. 7. DuoNeb q.4 hours p.r.n. 8. Lactulose 30 mL at bedtime. 9. Latanoprost eyedrops one drop to each eye at bedtime. 10. Multivitamins one tablet daily. 11. Zofran 4 mg every 6 hours as needed. 12. Prednisolone acetate eye drops one drop to right eye daily. 13. Zocor 20 mg at bedtime. 14. Fleet enema 133 mL daily as needed. 15. Nitrofurantoin 100 mg 2 times a day for 3 more days. 16. Oral prednisone taper. HOSPITAL COURSE: Ms. Cabrera is a pleasant 74-year-old lady, who was admitted to [facility] for acute on chronic hypoxic respiratory failure secondary to asthma exacerbation. She was seen by Pulmonology Service, Dr. Page. She was briefly treated with BiPAP. She improved clinically. She was also found to have Escherichia coli UTI, resistant to ampicillin, ciprofloxacin, and levofloxacin. She is being discharged back to her retirement on nitrofurantoin. She was also hyperkalemic on 08/24/2019, with a potassium of 6.0. She received treatments and hyperkalemia resolved. Her potassium supplements are on hold. She will need to have her chem-7 checked in 1 week's time and decision made regarding resumption of potassium. 2D echocardiogram during this hospitalization showed left ventricular ejection fraction of 55% to 60%, normal-sized left atrium, normal-sized left ventricle, mild to moderate tricuspid regurgitation, and impaired relaxation compatible with diastolic dysfunction. Many thanks for allowing me to participate in your patient's care. Please feel free to contact me with any questions or concerns. DISCHARGE DESTINATION: Residential Facility. TIME SPENT: Total amount of time spent coordinating this discharge: 32 minutes. Job ID: [id number]
== END 2019-08-27 17:32 | DRG 189 ==
LOC: ERS 19:27 → INTOOBSV 22:39 → OBSVTOIN 22:39 → ERHOLD 22:39 → 2NO 08-24 15:19 → T4-B 08-25 14:17
PROVIDERS: ADMIT Hospitalist; ATTEND Hospitalist
DX: J96.21 Acute and chronic respiratory failure with hypoxia (principal); N30.00 Acute cystitis without hematuria; J45.901 Unspecified asthma with (acute) exacerbation; B96.20 Unspecified Escherichia coli [E. coli] as the cause of diseases classified elsewhere; E87.5 Hyperkalemia; I10 Essential (primary) hypertension; E78.5 Hyperlipidemia, unspecified; J44.9 Chronic obstructive pulmonary disease, unspecified; Z74.01 Bed confinement status
CPT/HCPCS: 36415; 36416; 51701; 71045; 71250; 80048; 80053; 81003; 81015; 83605; 83880; 84484; 85025; 87040; 87077; 87086; 87186; 93005; 93306; 94640; 94660; 96365; 96367; A4353; J0696; J1650; J1815; J1940; J2920; J3370; J3490; J7512; J7620